=== PATIENT | female | born 1935 | race Caucasian/White ===

== ENCOUNTER 2018-08-11 16:00 | Outpatient (REF) | payer BC, SELFPAY ==
[2018-08-11 20:47] LABS: Anion Gap 8.1 mmol/L (3-11); BUN 18 mg/dL (7-18); CO2 29.9 mmol/L (21.0-32.0); CREATININE 0.72 mg/dL (0.55-1.02); Calcium 9.4 mg/dL (8.5-10.1); Chloride 103 mmol/L (98-107); Glucose 99 mg/dL (70-100); Potassium 3.8 mmol/L (3.5-5.1); Sodium 141 mmol/L (136-145); TSH 2.34 uIU/mL (0.358-3.74)
[2018-08-14 03:21] LABS: 25-Hydroxy D Total 40 ng/mL; 25-Hydroxy D2 <4.0 ng/mL; 25-Hydroxy D3 40 ng/mL
== END 2018-08-11 16:20 ==
LOC: NCHCN 16:00
PROVIDERS: PCP Internal Medicine; Visit Provider Internal Medicine
DX: E55.9 Vitamin D deficiency, unspecified (principal); Z00.00 Encounter for general adult medical examination without abnormal findings; M17.9 Osteoarthritis of knee, unspecified; E66.9 Obesity, unspecified
CPT/HCPCS: 80048; 82306; 84443

== ENCOUNTER 2018-10-13 11:33 | Outpatient (REF) | payer BC, SELFPAY ==
--- NOTE | 2018-10-13 10:45 | SKI_PTH ---
PATIENT: Lisa Stuart LOC: [facility] U#:[id number] AGE/SX: 83/F ROOM: RE10/13/[address]: Richard Ross V : 1935 BED: DIS: 10/13/2018 SPEC #: [id number] RECD: 10/14/18 11:50 STATUS: ROBBY REQ #: [id number] TEOFILO: 10/13/18 10:[address]: Richard Ross V DEPT: Surgical Specimen RECD BY: Verna Dyer ENTERED: 10/14/18 11:50 SP TYPE: SORIN WADSWORTH DR: Andrade Bhatt Tissues: 1 - SKIN BIOPSY(SHAVE/PUNCH) Procedures: SKIN LEVEL 4 Comments: [id number]
== END 2018-10-13 11:53 ==
LOC: NCHCN 11:33
PROVIDERS: PCP Internal Medicine; Visit Provider Physician Assistant Medical
DX: C44.729 Squamous cell carcinoma of skin of left lower limb, including hip (principal)
CPT/HCPCS: 88305

== ENCOUNTER 2019-11-16 17:54 | Outpatient (REF) | payer BC, SELFPAY ==
[2019-11-16 20:50] LABS: Abs Immature Grans 0.01 k/cumm (0.0-0.09); Absolute Basophil Count 0.02 k/cumm (0.0-0.2); Absolute Eosinophil Count 0.26 k/cumm (0.0-0.7); Absolute Lymphocyte Count 1.71 k/cumm (1.2-3.4); Absolute Monocyte Count 0.76 k/cumm (0.11-0.7); Absolute Neutrophil Count 4.21 k/cumm (1.2-6.7); Basophils % 0.3; Eosinophils % 3.7; HCT 39.1 % (36.0-46.0); HGB 12.7 g/dL (12.0-15.5); Immature Grans % 0.1 %; Lymphocytes % 24.5; Mean Corp. HGB Concentration 32.5 g/dL (32.0-36.0); Mean Corpuscular Hemoglobin 30.9 pg (27.0-33.0); Mean Corpuscular Volume 95.1 fL (80-95); Mean Platelet Volume 11.2 fL (8.0-11.0); Monocytes % 10.9; Neutrophils % 60.5; Platelet Count 223 x1000/uL (130-400); RBC 4.11 m/cumm (4.00-5.20); RBC Distribution Width 13.2 % (11.7-14.6); White Blood Cell Count 6.97 k/cumm (4.4-10.8)
[2019-11-16 21:20] LABS: TSH (W/Ref FT4) 2.89 uIU/mL (0.36-3.74)
== END 2019-11-16 18:14 ==
LOC: NCHCN 17:54
PROVIDERS: PCP Internal Medicine; Visit Provider Nurse Practitioner Family
DX: J02.9 Acute pharyngitis, unspecified (principal); F45.8 Other somatoform disorders
CPT/HCPCS: 84443; 85025

== ENCOUNTER 2020-04-20 17:06 | Outpatient (REF) | payer BC, SELFPAY ==
[2020-04-20 19:27] LABS: Anion Gap 8.9 mmol/L (3-11); BUN 14 mg/dL (7-18); C-Reactive Protein 0.32 mg/dL (0.0-0.3); CO2 27.1 mmol/L (21.0-32.0); CREATININE 0.71 mg/dL (0.55-1.02); Calcium 9.5 mg/dL (8.5-10.1); Chloride 104 mmol/L (98-107); Glucose 103 mg/dL (74-106); Potassium 4.4 mmol/L (3.5-5.1); Sodium 140 mmol/L (136-145); TSH 1.95 uIU/mL (0.36-3.74)
[2020-04-20 19:30] LABS: Troponin I < 0.05 ng/mL (<0.06)
== END 2020-04-20 17:26 ==
LOC: NCHCN 17:06
PROVIDERS: PCP Internal Medicine; Visit Provider Internal Medicine
DX: R07.89 Other chest pain (principal); M54.12 Radiculopathy, cervical region; M17.12 Unilateral primary osteoarthritis, left knee
CPT/HCPCS: 80048; 84443; 84484; 86140

== ENCOUNTER 2021-03-27 20:40 | Outpatient (REF) | payer BC, SELFPAY ==
[2021-03-27 20:49] LABS: Abs Immature Grans 0.01 10^3/uL (0.0-0.06); Absolute Basophil Count 0.02 10^3/uL (0.0-0.2); Absolute Eosinophil Count 0.21 10^3/uL (0.0-0.7); Absolute Lymphocyte Count 1.09 10^3/uL (1.2-3.4); Absolute Monocyte Count 0.49 10^3/uL (0.1-0.8); Absolute Neutrophil Count 3.15 10^3/uL (1.2-6.7); Basophils % 0.4; Eosinophils % 4.2; HGB 12.2 g/dL (11.2-15.7); Immature Grans % 0.2; Lymphocytes % 21.9; MCH 30.9 pg (27.0-33.0); MCHC 32.1 % (32.0-36.0); MCV 96.2 fL (80-95); MPV 11.4 fL (8.0-11.0); Monocytes % 9.9; Neutrophils % 63.4; Nucleated RBC 0 %; Platelet Count 177 10^3/uL (130-400); RBC 3.95 10^6/uL (3.93-5.22); RDW 12.4 % (11.7-14.6); RDW-SD 43.8 fL; WBC 4.97 10^3/uL (4.4-10.8)
[2021-03-27 21:30] LABS: ALT 29 U/L (14-59); AST 23 U/L (15-37); Albumin 3.8 g/dL (3.4-5.0); Alkaline Phosphatase 90 U/L (46-116); Anion Gap 6.3 mmol/L (3-11); BUN 16 mg/dL (7-18); Bilirubin, Total 0.3 mg/dL (0.2-1.0); CO2 29.7 mmol/L (21.0-32.0); CREATININE 0.7 mg/dL (0.55-1.02); Calcium 9.2 mg/dL (8.5-10.1); Chloride 108 mmol/L (98-107); Glucose 101 mg/dL (74-106); Magnesium 2.1 mg/dL (1.8-2.4); Potassium 4.6 mmol/L (3.5-5.1); Sodium 144 mmol/L (136-145); Total Protein 6.6 g/dL (6.4-8.2); Vitamin B12 481 pg/mL (193-986)
== END 2021-03-27 20:41 | disposition home or self-care (01) ==
LOC: NCHCN 20:40
PROVIDERS: PCP Internal Medicine; Visit Provider Physician Assistant
DX: R53.83 Other fatigue (principal); R23.8 Other skin changes; R60.0 Localized edema
CPT/HCPCS: 80053; 82607; 83735; 85025

== ENCOUNTER 2021-05-30 15:09 | Outpatient (REF) | payer BC, SELFPAY ==
[2021-05-30 19:41] LABS: Bilirubin Negative (Negative); Blood Negative (Negative); Clarity Clear (Clear); Glucose Negative (Negative); Ketones Negative (Negative); Leukocyte Esterase Small (Negative); Nitrite Negative (Negative); Specific Gravity 1.025 (1.005-1.025); Urobilinogen 0.2 EU/dL (Up TO 0.2); pH 5.5 (5-8)
[2021-05-30 19:49] LABS: Bacteria Negative HPF (Negative); C & S Indicated? No/Sq. Contamination; Casts Negative LPF (Negative); Crystals Negative HPF (Negative); Epithelial Cells Moderate HPF (Negative); Mucus Negative (Negative); Other Cells Moderate Renal (Negative); RBC Negative HPF (0-2); WBC 20-50 HPF (0-5)
== END 2021-05-30 15:10 | disposition home or self-care (01) ==
LOC: NCHCN 15:09
PROVIDERS: PCP Internal Medicine; Visit Provider Nurse Practitioner Family
DX: N89.8 Other specified noninflammatory disorders of vagina (principal)
CPT/HCPCS: 81003; 81015

== ENCOUNTER 2022-03-19 12:25 | Outpatient (REF) | payer BC, SELFPAY ==
[2022-03-19 20:00] LABS: HCT 37.2 % (36.0-46.0); HGB 12.4 g/dL (11.2-15.7); MCH 31.8 pg (27.0-33.0); MCHC 33.3 % (32.0-36.0); MCV 95 fL (80-95); Platelet Count 199 10^3/uL (130-400); RDW 12.9 % (11.7-14.6); RDW-SD 44.9 fL; WBC 7.06 10^3/uL (4.4-10.8)
[2022-03-19 20:19] LABS: Anion Gap 9.7 mmol/L (3-11); BUN 20 mg/dL (7-18); CO2 27.3 mmol/L (21.0-32.0); CREATININE 0.8 mg/dL (0.55-1.02); Calcium 9.2 mg/dL (8.5-10.1); Chloride 104 mmol/L (98-107); Glucose 94 mg/dL (74-106); Potassium 4.2 mmol/L (3.5-5.1); Sodium 141 mmol/L (136-145)
== END 2022-03-19 12:26 | disposition home or self-care (01) ==
LOC: NCHCN 12:25
PROVIDERS: PCP Internal Medicine; Visit Provider Internal Medicine
DX: Z00.00 Encounter for general adult medical examination without abnormal findings (principal); E66.9 Obesity, unspecified; Z13.29 Encounter for screening for other suspected endocrine disorder
CPT/HCPCS: 80048; 85027; 84443

== ENCOUNTER 2022-09-15 15:27 | Outpatient (REF) | payer BC, SELFPAY ==
[2022-09-15 19:17] LABS: Bilirubin Negative (Negative); Blood Negative (Negative); Clarity Cloudy (Clear); Glucose Negative (Negative); Ketones Negative (Negative); Leukocyte Esterase Trace (Negative); Nitrite Negative (Negative); Specific Gravity >= 1.030 (1.005-1.025); Urobilinogen 0.2 EU/dL (Up TO 0.2); pH 5.5 (5-8)
[2022-09-15 19:27] LABS: Bacteria Many HPF (Negative); C & S Indicated? Yes; Crystals Many Calcium Oxalate HPF (Negative); Epithelial Cells Few HPF (Negative); Mucus Negative (Negative); RBC 0-2 HPF (0-2)
== END 2022-09-15 15:28 | disposition home or self-care (01) ==
LOC: NCHCN 15:27
PROVIDERS: PCP Internal Medicine; Visit Provider Internal Medicine
DX: N39.3 Stress incontinence (female) (male) (principal)
CPT/HCPCS: 81003; 81015; 87086

== ENCOUNTER 2023-01-08 12:50 | Outpatient (REF) | payer BC, SELFPAY ==
[2023-01-08 19:55] LABS: Abs Immature Grans 0.02 10^3/uL (0.0-0.06); Absolute Basophil Count 0.03 10^3/uL (0.0-0.2); Absolute Monocyte Count 0.57 10^3/uL (0.1-0.8); Absolute Neutrophil Count 4.14 10^3/uL (1.2-6.7); Basophils % 0.5; Eosinophils % 3.3; HCT 37.3 % (36.0-46.0); HGB 12.2 g/dL (11.2-15.7); Immature Grans % 0.3; Lymphocytes % 18.2; MCH 30.8 pg (27.0-33.0); MCHC 32.7 % (32.0-36.0); MCV 94 fL (80-95); MPV 10.8 fL (8.0-11.0); Monocytes % 9.4; Neutrophils % 68.3; Platelet Count 187 10^3/uL (130-400); RBC 3.96 10^6/uL (3.93-5.22); RDW 12.9 % (11.7-14.6); RDW-SD 44.2 fL; WBC 6.06 10^3/uL (4.4-10.8)
[2023-01-08 20:20] LABS: Anion Gap 6.8 mmol/L (3-11); BUN 19 mg/dL (7-18); CO2 30.2 mmol/L (21.0-32.0); CREATININE 0.9 mg/dL (0.55-1.02); Calcium 9.3 mg/dL (8.5-10.1); Calculated LDL 120 mg/dL (<100); Chloride 106 mmol/L (98-107); Cholesterol 199 mg/dL (<200); Estimated GFR 62.26 (mL/min/1.73m2); Glucose 107 mg/dL (74-106); HDL Cholesterol 60 mg/dL (40-60); Potassium 4.2 mmol/L (3.5-5.1); Sodium 143 mmol/L (136-145); Triglyceride 99 mg/dL (<150)
== END 2023-01-08 12:51 | disposition home or self-care (01) ==
LOC: NCHCN 12:50
PROVIDERS: PCP Internal Medicine; Visit Provider Internal Medicine
DX: C44.92 Squamous cell carcinoma of skin, unspecified (principal); M17.12 Unilateral primary osteoarthritis, left knee; E66.8 Other obesity; M25.562 Pain in left knee
CPT/HCPCS: 80048; 80061; 85025

== ENCOUNTER 2023-12-28 16:23 | Outpatient (REF) | payer BC, SELFPAY ==
[2023-12-28 19:29] LABS: Bilirubin Negative (Negative); Blood Negative (Negative); Clarity Clear (Clear); Glucose Negative (Negative); Ketones Negative (Negative); Leukocyte Esterase Negative (Negative); Nitrite Negative (Negative); Specific Gravity 1.025 (1.005-1.025); Urobilinogen 0.2 mg/dL (Up to 0.2)
== END 2023-12-28 16:24 | disposition home or self-care (01) ==
LOC: NCHCN 16:23
PROVIDERS: PCP Internal Medicine; Visit Provider Nurse Practitioner Family
DX: R10.9 Unspecified abdominal pain (principal)
CPT/HCPCS: 81003

== ENCOUNTER 2024-01-07 19:37 | Outpatient (REF) | payer BC, SELFPAY ==
[2024-01-09 11:05] LABS: Campylobacter PCR Negative (Negative); Salmonella PCR Negative (Negative); Shiga Toxin PCR Negative (Negative); Shigella/Enteroinvasive Ecoli Negative (Negative)
== END 2024-01-07 19:38 | disposition home or self-care (01) ==
LOC: NCHCN 19:37
PROVIDERS: PCP Internal Medicine; Visit Provider Nurse Practitioner Family
DX: R19.4 Change in bowel habit (principal)
CPT/HCPCS: 87505

== ENCOUNTER 2024-01-19 17:21 | Outpatient (REF) | payer BC, SELFPAY | END 2024-01-19 17:22 | disposition home or self-care (01) | LOC: NCHCN 17:21 | PROVIDERS: PCP Internal Medicine; Visit Provider Nurse Practitioner Family | DX: N90.7 Vulvar cyst (principal) | CPT/HCPCS: 87070; 87205 ==

== ENCOUNTER 2025-03-27 12:45 | Outpatient (REF) | payer BC, SELFPAY ==
[2025-03-27 20:31] LABS: FREE T4 1.04 ng/dL (0.76-1.46); TSH 2.73 uIU/mL (0.36-3.74)
== END 2025-03-27 12:46 | disposition home or self-care (01) ==
LOC: NCHCN 12:45
PROVIDERS: PCP Internal Medicine; Visit Provider Internal Medicine
DX: E04.2 Nontoxic multinodular goiter (principal)
CPT/HCPCS: 84439; 84443